=== PATIENT | male | born 1955 | race Hispanic/Latino ===

== ENCOUNTER 2019-04-12 15:03 | Inpatient (IN) | payer SELFPAY ==
[~2019-04-12] VITALS: Ht 172.7 cm; Wt 84.0 kg
[2019-04-12] MEDS ORDERED: ONDANSETRON HCL 4 MG/2 ML VIAL ONE (15:18)
[2019-04-12 15:33] LABS: BASOPHILS % (AUTO) 0.4 % (0.0-5.0); EOSINOPHILS % (AUTO) 0.1 % (0.0-8.0); HEMATOCRIT 39.6 % (42-54); LYMPHOCYTES % (AUTO) 6.9 % (21.0-51.0); MEAN CORPUSCULAR HEMOGLOBIN 31.9 pg (27.0-33.0); MEAN CORPUSCULAR HGB CONC 35.6 g/dL (32.0-36.0); MEAN CORPUSCULAR VOLUME 89.5 fL (79-99); MONOCYTES % (AUTO) 8.7 % (3.0-13.0); NEUTROPHILS % (AUTO) 83.9 % (40.0-77.0); PLATELET COUNT (AUTO) 194 K/uL (130-400); RED BLOOD CELL COUNT(AUTO) 4.43 MIL/uL (4.50-6.20); WHITE BLOOD COUNT (AUTO) 9.8 K/uL (4.8-10.8)
[2019-04-12 15:44] LABS: POTASSIUM 4.4 mmol/L (3.5-5.1)
[2019-04-12 15:45] LABS: INR 0.89 (0.85-1.15); PARTIAL THROMBOPLASTIN TIME 31.8 SEC (26.3-35.5); PROTHROMBIN TIME 9.4 SEC (9.6-11.6)
[2019-04-12 15:48] LABS: ALBUMIN 3.1 g/dL (3.5-5.0); BILIRUBIN,TOTAL 1.2 mg/dL (0.2-1.0); TOTAL PROTEIN, SERUM 7.5 g/dL (6.0-8.3)
[2019-04-12 16:03] LABS: APPEARANCE,URINE Clear (CLEAR); BILIRUBIN,URINE Negative (NEGATIVE); COLOR,URINE Yellow (YELLOW); GLUCOSE, URINE (UA) >=1000 mg/dL (NEGATIVE); KETONES,URINE >=80 mg/dL (NEGATIVE); LEUKOCYTE ESTERASE ,URINE Negative (NEGATIVE); NITRATE,URINE Negative (NEGATIVE); OCCULT BLOOD,URINE Small (NEGATIVE); PH,URINE 5.5 (5.0-8.0); PROTEIN,URINE POS 1+ mg/dL (NEGATIVE)
[2019-04-12 16:15] LABS: BACTERIA,URINE Few /HPF (None Seen); MUCUS,URINE Few LPF (None Seen); SQUAMOUS EPITHELIAL CELL,UR 0-2 /HPF (0-2)
[2019-04-12] MEDS ORDERED: KETOROLAC TROMETHAMINE 30MG/ML ONE (16:16)
[2019-04-12] MEDS ORDERED: SODIUM CHLORIDE 0.9% 1000ML 1,000 ML IV ONE ×3 (16:16→17:54)
[2019-04-12 16:56] LABS: ABG HCO3 21.6 mmol/L (21.0-28.0); ABG OXYGEN SATURATION 94.3 % (95.0-99.0); ABG PCO2 31 mmHg (35-48)
[2019-04-12] MEDS ORDERED: LEVOFLOXACIN 500 MG/D5W 100 ML 100 ML ONE (17:14)
[2019-04-12] MEDS ORDERED: CEFTRIAXONE SODIUM 1 GM ONE (17:14)
[2019-04-12] MEDS ORDERED: GLUCAGON 1MG KIT 1 MG ML IM PRN (17:45)
[2019-04-12] MEDS ORDERED: IPRATROPIUM/ALBUTEROL SULFATE 3 ML SOLUTION IH PRN (17:45)
[2019-04-12] MEDS: SODIUM CHLORIDE 0.9% 1000ML 1,000 ML IV SCH (17:45)
[2019-04-12] MEDS ORDERED: DEXTROSE 50%-WATER 50 ML DISP.SYRIN IV PRN (17:45)
[2019-04-12] MEDS ORDERED: INSULIN HUMULIN R 100 UNIT/ML 3ML ONE (18:07)
[2019-04-12 18:32] LABS: CREATININE 0.9 mg/dL (0.5-1.5); POTASSIUM 3.6 mmol/L (3.5-5.1)
[2019-04-12] MEDS ORDERED: PHARMACY COMMUNICATION MISC SCH (19:15)
[2019-04-12] MEDS ORDERED: CEFTRIAXONE SODIUM 1 GM IVP SCH (19:15)
[2019-04-12] MEDS: LEVOFLOXACIN 750 MG/D5W 150 ML 150 ML IV SCH (20:00)
[2019-04-12 20:36] LABS: CREATININE 0.9 mg/dL (0.5-1.5); POTASSIUM 3.9 mmol/L (3.5-5.1)
[2019-04-12 21:28] VITALS: BP 107/80
[2019-04-12 22:02] LABS: CREATININE 0.8 mg/dL (0.5-1.5); POTASSIUM 3.8 mmol/L (3.5-5.1)
[2019-04-12] MEDS: INSULIN HUMULIN R 100 UNIT/ML 3ML SQ SCH (22:08)
[2019-04-12] MEDS: INSULIN GLARGINE 100 UNITS/ML 10 ML VIAL SQ SCH (22:09)
--- NOTE | 2019-04-12 22:15 | NUR ---
Patient stated he does occasional smoking. Addendum: 04/12/19 at 3274 by CLAUDIA BURGOS RT Amended: Links added.
[2019-04-12] MEDS ORDERED: ACETAMINOPHEN 325 MG TAB ONE (22:27)
[2019-04-12] MEDS ORDERED: ONDANSETRON HCL 4 MG/2 ML VIAL IVP PRN (22:45)
[2019-04-12] MEDS: IPRATROPIUM/ALBUTEROL SULFATE 3 ML SOLUTION IH SCH (23:21)
[2019-04-12] MEDS: ACETAMINOPHEN 325 MG TAB PO PRN (23:40)
[2019-04-12 23:51] VITALS: BP 118/65
[2019-04-13 01:24] LABS: CREATININE 0.7 mg/dL (0.5-1.5); POTASSIUM 3.4 mmol/L (3.5-5.1)
[2019-04-13 02:11] LABS: CREATININE 0.8 mg/dL (0.5-1.5); POTASSIUM 3.5 mmol/L (3.5-5.1)
[2019-04-13] MEDS ORDERED: SODI15DR8 OP (02:32)
[2019-04-13] MEDS ORDERED: ERYT1OIN7 OP (02:32)
[2019-04-13 04:00] VITALS: BP 145/81
[2019-04-13 04:09] LABS: ABG BASE EXCESS 1.1 mmol/L (-2.0-3.0); ABG HCO3 24.5 mmol/L (21.0-28.0); ABG OXYGEN SATURATION 93.4 % (95.0-99.0); ABG PCO2 35 mmHg (35-48)
[2019-04-13 04:09] LABS: HEMATOCRIT 36.9 % (42-54); MEAN CORPUSCULAR HEMOGLOBIN 32.3 pg (27.0-33.0); MEAN CORPUSCULAR HGB CONC 35.8 g/dL (32.0-36.0); MEAN CORPUSCULAR VOLUME 90.2 fL (79-99); PLATELET COUNT (AUTO) 182 K/uL (130-400); RED BLOOD CELL COUNT(AUTO) 4.09 MIL/uL (4.50-6.20); WHITE BLOOD COUNT (AUTO) 9.8 K/uL (4.8-10.8)
[2019-04-13 04:20] LABS: BAND NEUTROPHILS % (MANUAL) 1 % (0-2); LYMPHOCYTES % (MANUAL) 14 % (22-44); MAN.DIFF COMMENT-IMPRESSION MANUAL DIFFERENTIAL; MONOCYTES % (MANUAL) 5 % (2-9); SEGMENTED NEUTROPHILS % 80 % (40-70)
[2019-04-13 04:26] LABS: ALBUMIN 2.7 g/dL (3.5-5.0); BILIRUBIN,TOTAL 0.8 mg/dL (0.2-1.0); CREATININE 0.9 mg/dL (0.5-1.5); POTASSIUM 3.3 mmol/L (3.5-5.1); TOTAL PROTEIN, SERUM 6.8 g/dL (6.0-8.3)
[2019-04-13] MEDS: INSULIN HUMULIN R 100 UNIT/ML 3ML SQ SCH ×4 (05:53→21:59)
[2019-04-13 06:53] LABS: CREATININE 0.8 mg/dL (0.5-1.5); POTASSIUM 3.4 mmol/L (3.5-5.1)
[2019-04-13 07:26] VITALS: BP 140/69
[2019-04-13] MEDS: IPRATROPIUM/ALBUTEROL SULFATE 3 ML SOLUTION IH SCH ×3 (07:34→18:46)
--- NOTE | 2019-04-13 08:00 | NUR ---
ASSESSMENT PT IS AAOX4 DENIES CP DENIES SOB DENIES NV, BREATHING PATTERN IS EVEN AND UNLABORED, NO VISIBLE SIGNS OF DISTRESS NOTED. CALL LIGHT WITHIN REACH.
[2019-04-13 08:17] LABS: CREATININE 0.8 mg/dL (0.5-1.5); POTASSIUM 3.8 mmol/L (3.5-5.1)
[2019-04-13 10:56] VITALS: BP 132/70
[2019-04-13] MEDS: ZOSYN 3.375GM+NS 50ML 50 ML IV SCH ×2 (10:59→17:16)
[2019-04-13] MEDS: SODIUM CHLORIDE 0.9% 1000ML 1,000 ML IV SCH (13:15)
--- NOTE | 2019-04-13 14:30 | NUR ---
DC PLAN VISITED WITH PATIENT. PATIENT LIVES WITH SPOUSE. INDEPENDENT ABLE TO PERFORM ADL'S. PATIENT HAS NO SERVICES OR DME'S. FEELS SAFE TO RETURN HOME. REGARDING DM. SAID ITS OLD SINCE 1986 HAS MEDICAL DOCTOR MD/MEDICAL DIRECTOR AND NO PROBLEM GETTING MEDICATIONS. DOES CHECK SUGARS WHEN NEEDED. Addendum: 04/13/19 at 1432 by LYNN ZAPATA RN CM Amended: Links added.
[2019-04-13] MEDS ORDERED: MAGNESIUM CITRATE 296 ML SOLUTION PO SCH (15:00)
[2019-04-13 15:07] VITALS: BP 136/71
--- NOTE | 2019-04-13 18:00 | NUR ---
STATUS RESTING SITTING UP IN BED. NO VISIBLE SIGNS OF DISTRESS NOTED, FAMILY AT BEDSIDE, CALL LIGHT WITHIN REACH.
[2019-04-13 20:12] VITALS: BP 140/72
[2019-04-13] MEDS: LEVOFLOXACIN 750 MG/D5W 150 ML 150 ML IV SCH (21:04)
[2019-04-13] MEDS: CEFTRIAXONE SODIUM 1 GM IVP SCH (21:04)
[2019-04-13] MEDS: INSULIN GLARGINE 100 UNITS/ML 10 ML VIAL SQ SCH (21:58)
[2019-04-14] VITALS (7 sets, daily range): BP systolic 111–131; BP diastolic 61–72
[2019-04-14] MEDS: IPRATROPIUM/ALBUTEROL SULFATE 3 ML SOLUTION IH SCH ×5 (00:08→23:48)
[2019-04-14] MEDS: ACETAMINOPHEN 325 MG TAB PO PRN (01:55)
[2019-04-14] MEDS: ZOSYN 3.375GM+NS 50ML 50 ML IV SCH ×3 (01:55→16:34)
[2019-04-14] MEDS ORDERED: ACETAMINOPHEN 325 MG TAB PO PRN (02:30)
[2019-04-14 04:15] LABS: BASOPHILS % (AUTO) 0.4 % (0.0-5.0); EOSINOPHILS % (AUTO) 0.6 % (0.0-8.0); HEMATOCRIT 35.1 % (42-54); LYMPHOCYTES % (AUTO) 12.1 % (21.0-51.0); MEAN CORPUSCULAR HEMOGLOBIN 31.8 pg (27.0-33.0); MEAN CORPUSCULAR HGB CONC 35.5 g/dL (32.0-36.0); MEAN CORPUSCULAR VOLUME 89.5 fL (79-99); NEUTROPHILS % (AUTO) 77.9 % (40.0-77.0); PLATELET COUNT (AUTO) 200 K/uL (130-400); RED BLOOD CELL COUNT(AUTO) 3.92 MIL/uL (4.50-6.20); RED CELL DISTRIBUTION WIDTH 13.1 % (11.0-15.5); WHITE BLOOD COUNT (AUTO) 9.1 K/uL (4.8-10.8)
[2019-04-14 04:36] LABS: ALBUMIN 2.4 g/dL (3.5-5.0); BILIRUBIN,TOTAL 0.6 mg/dL (0.2-1.0); CREATININE 0.9 mg/dL (0.5-1.5); POTASSIUM 3.8 mmol/L (3.5-5.1); TOTAL PROTEIN, SERUM 6.5 g/dL (6.0-8.3)
[2019-04-14] MEDS: INSULIN HUMULIN R 100 UNIT/ML 3ML SQ SCH ×4 (06:43→21:57)
[2019-04-14] MEDS: SODIUM CHLORIDE 0.9% 1000ML 1,000 ML IV SCH (07:11)
--- NOTE | 2019-04-14 08:00 | NUR ---
ASSESSMENT PT IS AAOX4 DENIES CP DENIES SOB DENIES NV, BREATHING PATTERN IS EVEN AND UNLABORED, NO VISIBLE SIGNS OF DISTRESS NOTED. CALL LIGHT WITHIN REACH.
--- NOTE | 2019-04-14 13:01 | NUR ---
[facility] consult Patient assessed as ordered. Patient reports ulcer to [facility] x 1 1/2 yrs. Currently using silvadene and is followed at [facility]. [facility] recommendations submitted and report given to patient's nurse, Dimas ACOSTA. Addendum: 04/14/19 at 1303 by ALIVIA MARSHALL RN/ Amended: Links added.
[2019-04-14 16:16] LABS: HEMATOCRIT 35.6 % (42-54); MEAN CORPUSCULAR HEMOGLOBIN 31.7 pg (27.0-33.0); MEAN CORPUSCULAR HGB CONC 35.3 g/dL (32.0-36.0); MEAN CORPUSCULAR VOLUME 89.9 fL (79-99); PLATELET COUNT (AUTO) 199 K/uL (130-400); RED BLOOD CELL COUNT(AUTO) 3.96 MIL/uL (4.50-6.20); WHITE BLOOD COUNT (AUTO) 7.2 K/uL (4.8-10.8)
[2019-04-14 16:23] LABS: CREATININE 0.9 mg/dL (0.5-1.5); POTASSIUM 3.6 mmol/L (3.5-5.1)
[2019-04-14] MEDS: METHYLPREDNISOLONE SOD SUCC 40MG/ML 1ML IVP SCH (16:34)
--- NOTE | 2019-04-14 19:25 | NUR ---
ASSESSMENT PATIENT IS RESTING IN BED. FAMILY IS AT BEDSIDE. AAOX4. NO COMPLAINTS OF PAIN AT THIS TIME. NO COMPLAINTS OR SIGNS OF SHORTNESS OF BREATH. NO SIGNS OF DISTRESS. PATIENTS CALL LIGHT AND BEDSIDE TABLE ARE WITHIN REACH. NO QUESTIONS, CONCERNS, OR NEEDS AT THIS TIME. PATIENT REINFORCED TO CALL FOR ANY NEEDS.
[2019-04-14] MEDS: CEFTRIAXONE SODIUM 1 GM IVP SCH (20:23)
[2019-04-14] MEDS: FAMOTIDINE 20MG TAB 20 MG TAB PO SCH (20:23)
[2019-04-14] MEDS: LEVOFLOXACIN 750 MG/D5W 150 ML 150 ML IV SCH (20:24)
[2019-04-14] MEDS: HEPARIN SODIUM 5000UNIT/ML 1ML VIAL SQ SCH (20:28)
[2019-04-14] MEDS: INSULIN GLARGINE 100 UNITS/ML 10 ML VIAL SQ SCH (21:58)
--- NOTE | 2019-04-15 | NUR ---
ASSESSMENT PATIENT IS RESTING IN BED. NO COMPLAINTS OF PAIN AT THIS TIME. NO SIGNS OR COMPLAINTS OF SHORTNESS OF BREATH. NO SIGNS OF DISTRESS. PATIENTS CALL LIGHT AND BEDSIDE TABLE WITHIN REACH. ALL NEEDS MET AT THIS TIME.
[2019-04-15] MEDS: METHYLPREDNISOLONE SOD SUCC 40MG/ML 1ML IVP SCH ×2 (03:13→08:38)
[2019-04-15] MEDS: ZOSYN 3.375GM+NS 50ML 50 ML IV SCH ×2 (03:13→11:42)
[2019-04-15 04:20] VITALS: BP 121/73
[2019-04-15 04:34] LABS: BASOPHILS % (AUTO) 0.1 % (0.0-5.0); HEMATOCRIT 36.9 % (42-54); MEAN CORPUSCULAR HGB CONC 35.5 g/dL (32.0-36.0); MEAN CORPUSCULAR VOLUME 90.3 fL (79-99); MONOCYTES % (AUTO) 2.9 % (3.0-13.0); PLATELET COUNT (AUTO) 229 K/uL (130-400); RED BLOOD CELL COUNT(AUTO) 4.08 MIL/uL (4.50-6.20); WHITE BLOOD COUNT (AUTO) 6.7 K/uL (4.8-10.8)
[2019-04-15 04:53] LABS: ALBUMIN 2.6 g/dL (3.5-5.0); BILIRUBIN,TOTAL 0.4 mg/dL (0.2-1.0); CREATININE 0.8 mg/dL (0.5-1.5); POTASSIUM 4.3 mmol/L (3.5-5.1); TOTAL PROTEIN, SERUM 7.3 g/dL (6.0-8.3)
[2019-04-15] MEDS: INSULIN HUMULIN R 100 UNIT/ML 3ML SQ SCH ×3 (06:34→16:42)
[2019-04-15] MEDS: IPRATROPIUM/ALBUTEROL SULFATE 3 ML SOLUTION IH SCH ×2 (07:01→11:05)
[2019-04-15 07:44] VITALS: BP 125/65
[2019-04-15] MEDS: FAMOTIDINE 20MG TAB 20 MG TAB PO SCH (08:38)
[2019-04-15] MEDS: HEPARIN SODIUM 5000UNIT/ML 1ML VIAL SQ SCH (08:39)
[2019-04-15 11:39] VITALS: BP 130/71
[2019-04-15 15:40] VITALS: BP 131/72
[2019-04-15] MEDS ORDERED: LEVO750T21 PO (16:49)
[2019-04-15] MEDS ORDERED: PRED20TA3 PO (16:49)
[2019-04-15] MEDS ORDERED: INSU10VI3 SQ (16:56)
[2019-04-15] MEDS ORDERED: INSU100V12 SQ (16:56)
--- NOTE | 2019-04-15 17:02 | NUR ---
OFFERED PT. FLU AND PNEUMONIA VACCINE ORDERED, PT.'S SPOUSE PRESENT AT BEDSIDE. PT. REFUSED VACCINES, STATES HE WOULD LIKE TO CHECK WITH HIS PRIMARY MD BECAUSE HE DOES NOT KNOW IF HE HAS RECEIVED THEM THIS SEASON OR RECENTLY.
--- NOTE | 2019-04-15 17:30 | NUR ---
HL'S X2 REMOVED, CATHETERS INTACT. DISCHARGE INSTRUCTIONS GIVEN, PT. AND SPOUSE AT BEDSIDE VERBALIZED MUTUAL UNDERSTANDING.
--- NOTE | 2019-04-15 17:50 | NUR ---
DISCHARGED HOME VIA W/C WITH BELONGINGS ACCOMPANIED BY Lidya ALMENDAREZ, PCP AND PT.'S SPOUSE.
[2019-04-15] MEDS ORDERED: METHYLPREDNISOLONE SOD SUCC 40MG/ML 1ML IVP SCH (21:00)
== END 2019-04-15 17:55 | disposition home or self-care (01) | DRG 177 ==
LOC: EDH 15:03 → EDHIP 15:04 → OBSVTOIN 15:04 → 2AH 21:02
PROVIDERS: ADMIT Family Medicine; ATTEND Family Medicine
DX: J69.0 Pneumonitis due to inhalation of food and vomit (principal); J96.00 Acute respiratory failure, unspecified whether with hypoxia or hypercapnia; E87.3 Alkalosis; E87.1 Hypo-osmolality and hyponatremia; L97.919 Non-pressure chronic ulcer of unspecified part of right lower leg with unspecified severity; K21.9 Gastro-esophageal reflux disease without esophagitis; D89.9 Disorder involving the immune mechanism, unspecified; E11.51 Type 2 diabetes mellitus with diabetic peripheral angiopathy without gangrene; E11.36 Type 2 diabetes mellitus with diabetic cataract; E11.621 Type 2 diabetes mellitus with foot ulcer; E11.65 Type 2 diabetes mellitus with hyperglycemia; E78.00 Pure hypercholesterolemia, unspecified; E78.5 Hyperlipidemia, unspecified; F17.200 Nicotine dependence, unspecified, uncomplicated; I10 Essential (primary) hypertension; K59.00 Constipation, unspecified; Z79.4 Long term (current) use of insulin
CPT/HCPCS: 36415; 36600; 71045; 71046; 71250; 74176; 80048; 80053; 81001; 82010; 82150; 82550; 82803; 82948; 83690; 83880; 84100; 84145; 84484; 85025; 85027; 85610; 85730; 88108; 88305; 93005; 94640; 94664; 94667; 94668; 94760; 99291; G0378; J0696; J1644; J1815; J1885; J1956; J2405; J2543; J2920; J7030